=== PATIENT | female | born 1995 | race Caucasian/White ===

== ENCOUNTER 2016-09-30 07:09 | Inpatient (IN) ==
[2016-09-30 08:27] LABS: URINE SOURCE VOIDED
[2016-09-30 08:50] LABS: BILIRUBIN URINE NEGATIVE (NEGATIVE); BLOOD URINE NEGATIVE (NEGATIVE); CLARITY CLEAR (CLEAR); COLOR YELLOW; GLUCOSE URINE NEGATIVE (NEGATIVE); LEUKOCYTES URINE 1+ (NEGATIVE); NITRITE URINE NEGATIVE (NEGATIVE); PROTEIN URINE NEGATIVE (NEGATIVE); UROBILINOGEN URINE NORMAL
[2016-09-30 08:52] LABS: UR AMPHETAMINES QUAL NONE DETECTED (NONE DETECT); UR BARBITUATES QUAL NONE DETECTED (NONE DETECT); UR BENZODIAZEPIN QUAL NONE DETECTED (NONE DETECT); UR CANNABINOIDS QUAL NONE DETECTED (NONE DETECT); UR COCAINE QUAL NONE DETECTED (NONE DETECT); UR MDMA QUAL NONE DETECTED (NONE DETECT); UR METHADONE QUAL NONE DETECTED (NONE DETECT); UR METHAMPHETAMINE QUAL NONE DETECTED (NONE DETECT); UR OPIATES QUAL NONE DETECTED (NONE DETECT); UR OXYCODONE QUAL NONE DETECTED (NONE DETECT); UR PCP QUAL NONE DETECTED (NONE DETECT); UR TCA QUAL NONE DETECTED (NONE DETECT)
[2016-09-30] MEDS ORDERED: KEFZOL 1 GM/D5W 1 GM/50 ML IVPB IV PRN (09:36)
[2016-09-30] MEDS ORDERED: STADOL IV PRN (09:36)
[2016-09-30] MEDS ORDERED: PEPCID PO PRN (09:36)
[2016-09-30] MEDS ORDERED: PITOCIN 30 UNITS/LR 30 UNITS/500 ML IV.SOLN IV SCH (09:36)
[2016-09-30] MEDS ORDERED: AMPICILLIN 2 GM/NS 2 GM/100 ML IVPB IV ONE (09:36)
[2016-09-30] MEDS ORDERED: TYLENOL PO PRN (09:36)
[2016-09-30] MEDS ORDERED: REGLAN PO ONE (09:36)
[2016-09-30] MEDS ORDERED: PEPCID PO ONE (09:36)
[2016-09-30] MEDS ORDERED: ZOFRAN IV PRN (09:36)
[2016-09-30] MEDS ORDERED: LR 500 ML IV ONE (09:36)
[2016-09-30] MEDS ORDERED: PEPCID IV PRN (09:36)
[2016-09-30] MEDS ORDERED: SODIUM CHLORIDE 0.9% INJ SCH (09:45)
[2016-09-30] MEDS ORDERED: NAROPIN 0.2% EPIDURAL PRN (10:38)
[2016-09-30] MEDS ORDERED: XYLOCAINE-MPF 1% 10 ML ONE (11:31)
[2016-09-30] MEDS: LR 1,000 ML IV SCH ×2 (11:40→13:20)
[2016-09-30 11:53] LABS: MANUAL DIFF NEEDED? NO
[2016-09-30 11:55] LABS: BASO% 0.2 % (0.0-0.8); EOS# 0.09 X1000 (0.0-0.7); EOS% 0.6 % (0.0-10.0); HEMATOCRIT 34.5 % (37.0-47.0); HEMOGLOBIN 11.5 g/dL (12.0-16.0); IMM GRAN# 0.04 X1000 (0.0-0.04); IMM GRAN% 0.3 % (0.0-0.5); LYMPH# 2.89 X1000 (1.2-3.4); LYMPH% 19.1 % (20.5-51.1); MCH 30.2 PG (27-31); MCHC 33.3 g/dL (33-37); MCV 90.6 FL (81-99); MONO% 7.9 % (1.7-9.3); NEUT% 71.9 % (42.2-75.2); PLT 345 X1000 (130-400); RBC 3.81 XMIL (4.2-5.4)
[2016-09-30] MEDS ORDERED: AMPICILLIN 1 GM/NS 1 GM/50 ML IVPB IV SCH (13:37)
[2016-09-30] MEDS ORDERED: BENADRYL PO PRN (18:00)
[2016-09-30] MEDS ORDERED: PITOCIN 20 UNITS/LR 20 UNITS/1,000 ML IV.SOLN IV SCH (18:00)
[2016-09-30] MEDS ORDERED: HYDROXYZINE IM PRN (18:00)
[2016-09-30] MEDS ORDERED: CYTOTEC PO PRN (18:00)
[2016-09-30] MEDS ORDERED: M-M-R II VACCINE SUBQ ONE (18:00)
[2016-09-30] MEDS ORDERED: AMBIEN PO PRN (18:00)
[2016-09-30] MEDS ORDERED: XYLOCAINE-MPF 1% INJ PRN (18:00)
[2016-09-30] MEDS ORDERED: PERI MEDS (DERMOPLAST/NUPERCAINAL/TUCKS) MISC PRN (18:00)
[2016-09-30] MEDS ORDERED: BENADRYL IV PRN (18:00)
[2016-09-30] MEDS ORDERED: NORCO-10 PO PRN (18:00)
[2016-09-30] MEDS ORDERED: PITOCIN IM PRN (18:00)
[2016-09-30] MEDS ORDERED: MINERAL OIL PO PRN (18:00)
[2016-09-30] MEDS ORDERED: BOOSTRIX VACCINE IM ONE (18:00)
[2016-09-30] MEDS ORDERED: HYDROXYZINE PO PRN (18:00)
[2016-09-30] MEDS ORDERED: PITOCIN 30 UNITS/LR 30 UNITS/500 ML IV.SOLN IV ONE (18:00)
[2016-09-30] MEDS ORDERED: PNEUMOVAX 23 IM ONE (18:15)
--- NOTE | 2016-09-30 19:29 | OPERATIVE NOTE ---
PROCEDURE DATE: 09/30/2016 PREDELIVERY DIAGNOSES: 1. Intrauterine at 38+, labor. 2. Group B strep carrier status positive. 3. Positive history of delivery. 4. Failed 1 hour oral glucose tolerance test. POST DELIVERY DIAGNOSES: 1. Intrauterine at 38+, labor. 2. Group B strep carrier status positive. 3. Positive history of delivery. 4. Failed 1 hour oral glucose tolerance test. 5. Meconium-stained fluid. PROCEDURE: Vaginal delivery. PHYSICIAN: Jarod Gardiner MD ANESTHESIA: Epidural with Gerardo Childers MD. FINDINGS: Viable female , 6 pounds 1 ounce. Do not have Apgars. There are no lacerations or tears. Count was correct. Placenta and cord were normal. ESTIMATED BLOOD LOSS: 100 mL. DESCRIPTION OF PROCEDURE: Ms. Carpio is a 20-year-old 3, para 1, who presented with the above diagnoses. She was admitted, augmented with Pitocin, started on antibiotics. She received epidural anesthesia and made rapid progress after artificial rupture, became complete and started pushing. Soon after crowned, at which point the bed was broken down. With continued pushing, she delivered a viable female , occiput anterior, over an intact perineum. Once head delivered, shoulders and rest of the body delivered without any difficulty. So once the baby care was taken over by nursing personnel, cord blood was obtained. The cord was noted to be 3 vessels and gentle traction on the cord resulted in delivery of the placenta after approximately 4 minutes. It was inspected and found to be intact. Inspection of the vagina and perineum revealed no lacerations or tears. The vaginal sweep did not reveal any clots or foreign material. Count was correct. Estimated blood loss 100 mL. Expect routine . cc: Jarod Gardiner MD
[2016-09-30] MEDS: PRECARE PO SCH (20:10)
[2016-09-30] MEDS: PERICOLACE PO SCH (20:10)
[2016-09-30] MEDS: MOTRIN PO PRN (22:05)
[2016-09-30] MEDS: NORCO-5 PO PRN (22:05)
[2016-10-01] MEDS: NORCO-5 PO PRN ×3 (01:33→15:19)
[2016-10-01 06:52] LABS: BASO% 0.2 % (0.0-0.8); EOS# 0.07 X1000 (0.0-0.7); EOS% 0.3 % (0.0-10.0); HEMATOCRIT 35.3 % (37.0-47.0); HEMOGLOBIN 11.5 g/dL (12.0-16.0); IMM GRAN# 0.06 X1000 (0.0-0.04); IMM GRAN% 0.3 % (0.0-0.5); LYMPH% 19.4 % (20.5-51.1); MANUAL DIFF NEEDED? YES; MCH 30.1 PG (27-31); MCHC 32.6 g/dL (33-37); MCV 92.4 FL (81-99); MONO# 2.11 X1000 (0.11-0.59); MONO% 10.5 % (1.7-9.3); MPV 12.4 FL (7.4-10.4); NEUT% 69.3 % (42.2-75.2); PLT 325 X1000 (130-400); RBC 3.82 XMIL (4.2-5.4)
[2016-10-01] MEDS: MOTRIN PO PRN ×2 (07:15→15:19)
[2016-10-01 07:50] LABS: LYMPHS 20 % (21-51); MONO 1 % (1-9)
[2016-10-01] MEDS: FERROUS SULFATE PO SCH (08:30)
[2016-10-01] MEDS: PRECARE PO SCH (20:43)
[2016-10-01] MEDS: PERICOLACE PO SCH (20:43)
[2016-10-02] MEDS: MOTRIN PO PRN (06:38)
[2016-10-02] MEDS: NORCO-5 PO PRN (06:38)
[2016-10-02 09:35] VITALS: BP 108/51
[2016-10-02] MEDS: FERROUS SULFATE PO SCH (09:37)
[2016-10-02] MEDS ORDERED: PNEUMOVAX 23 IM ONE (10:00)
== END 2016-10-02 12:10 | disposition home or self-care (01) ==
LOC: P.OPLD 07:09 → P.LD 07:11 → P.WC 19:12
PROVIDERS: ADMIT Obstetrics & Gynecology; ATTEND Obstetrics & Gynecology